=== PATIENT | male | born 1950 | race Caucasian/White ===

== ENCOUNTER → 2016-12-07 | Outpatient (CLI) | payer MEDICARE ==
[~2016-12-07] MED LIST: ADVAIR 250-501 EACH INH; BUMETANIDE2 MG PO; CHLORTRIMETON 44 MG PO; FENOFIBRATE145 MG PO; FERROUS SULFAT325 MG PO; GLUCOTROL5 MG PO; K-DUR TAB 20 M20 MEQ PO; KLOR-CON 1010 MEQ PO; LASIX 40 MG TAB40 MG PO; LETAIRIS10 MG PO; LOPRESSOR 25 MG25 MG PO; METOLAZONE5 MG PO; POTASSIUM99 M1 PO; PRAVASTATIN SOD20 MG PO; SOTALOL80 MG PO; SPIRIVA18 MCG INH; SPIRONOLACTONE25 MG PO; TOUJEO SQ; VENTOLIN HFA 66.7 GM INH; VITAMIN D250000 UNIT PO; XARELTO20 MG PO; XOPENEX1.25 MG/3 INH; ZOLOFT100 MG PO
== END ==
LOC: LAB 07:59
DX: I50.9 Heart failure, unspecified (principal); R60.9 Edema, unspecified
CPT/HCPCS: 36415; 80048

== ENCOUNTER → 2016-12-28 | Outpatient (CLI) | payer MEDICARE, OTHER | LOC: LAB 07:40 | PROVIDERS: Internal Medicine Pulmonary Disease | DX: Z00.00 Encounter for general adult medical examination without abnormal findings (principal) | CPT/HCPCS: 36415; 80053 ==

== ENCOUNTER → 2021-01-21 | Outpatient (CLI) | payer MEDICARE, OTHER | LOC: RT 10:27 | DX: J96.12 Chronic respiratory failure with hypercapnia (principal) | CPT/HCPCS: 36600; 82803 ==